=== PATIENT | male | born 1965 | race Caucasian/White ===

== ENCOUNTER 2016-08-03 08:10 | Inpatient (IN) | payer OTHER ==
[2016-08-03 13:18] LABS: Urine Bacteria Absent (Absent); Urine Bilirubin 1+ (Negative); Urine Glucose Negative (Negative); Urine Nitrite Negative (Negative)
--- NOTE | 2016-08-03 13:56 | ED ---
Course/Dx - Course Course Of Treatment: 51 yo male with ruq pain under right rib cage after beef dinner fri night on all day yesterday and much relieved this am. Normal exam for him - plan is. 1) ekg. 2) cxr. 3) u/s. 4) labs. if normal ok to go with pmd or surgery followup - Diagnoses Provider Diagnoses: Abdominal pain
--- NOTE | 2016-08-03 13:59 | RAD ---
Indication: Right upper quadrant pain. Real-time sonography of the right upper quadrant was performed. The liver is enlarged measuring up to 17.4 cm in length. It is diffusely increased in echogenicity consistent with hepatic steatosis. Small focal area of hypoechogenicity is noted adjacent to the gallbladder fossa. The common duct measures up to 10 mm. Gallbladder demonstrates no gallstones, pericholecystic fluid or wall thickening. The right kidney measures 10.7 x 6.7 x 5.9 cm with no hydronephrosis. The pancreas head, neck and proximal body as well as aorta and inferior vena cava are limited in evaluation due to overlying gas. IMPRESSION: Echogenic liver consistent with hepatic steatosis. No evidence of cholelithiasis or biliary duct dilatation.
--- NOTE | 2016-08-03 14:04 | RAD ---
INDICATION: Chest and abdominal pain COMPARISON: None TECHNIQUE: PA and lateral dual-energy views were obtained. FINDINGS: Bones/Soft Tissues: There are no acute bony findings. Cardiomediastinal: The cardiomediastinal silhouette is normal. Lungs: There are no infiltrates. Pleura: There are no pleural effusions. Other: None IMPRESSION: NORMAL CHEST.
[2016-08-03 14:40] LABS: Hematocrit 55 % (42-52); Hemoglobin 18.7 g/dl (14.0-18.0); Mean Corpuscular HGB Conc 34 g/dl (31-36); Mean Corpuscular Hemoglobin 29 pg (27-31); Mean Corpuscular Volume 86 fL (80-94); Red Blood Count 6.36 10^6/ul (4.0-5.4); Red Cell Distribution Width 13 % (10.5-15); White Blood Count 15.2 10^3/ul (3.5-10.8)
[2016-08-03 14:45] LABS: Comments Flag Yes
[2016-08-03 14:46] LABS: Add Diff/Slide Review? Slide Review Added
[2016-08-03 14:57] LABS: Troponin I 0.01 ng/mL (<0.04)
[2016-08-03 15:12] LABS: Albumin 4.4 g/dL (3.2-5.2); BUN/Creatinine Ratio 17.3 (8-20); C Reactive Protein 76.07 mg/L (< 5.00); Calcium 10.4 mg/dL (8.6-10.3); EGFR African American 104.5 (>60); EGFR Non-African American 81.3 (>60); Globulin 3.4 g/dL (2-4); Potassium 4.4 mmol/L (3.5-5.0); Total Protein 7.8 g/dL (6.4-8.9)
[2016-08-03] MEDS ORDERED: NS 0.9% 1000 ML* 1,000 ML IV ONE (16:03)
--- NOTE | 2016-08-03 16:49 | ED ---
Kylie Geronimo Janilya, scribed for Sandie Chavez MD on 08/03/16 at 1505 . Abdominal Pain/Male - HPI Summary HPI Summary: A 51 yo male came in to [facility] presenting w/ a gradual onset of constant of "intense" RUQ abd pain that started 3 days ago after having a steak for dinner. Pt states there is no pain to palpation, but rather it feels good to put pressure in the area. Pt denies chest pressure. Pain has subsided since then, and now it is described as "dull and achy". Pt has not eaten anything today. No SHx of tobacco and SHx of occasional EtOH use. PMHx HTN, no DM, kidney stones. No PMHx of surgeries in abd, blood clots, PE, DVT FMHx HTN - mother No PE risk factors. - History of Current Complaint Chief Complaint: EDAbdPain Stated Complaint: UPPER RT ABD PAIN Time Seen by Provider: 08/03/16 15:01 Hx Obtained From: Patient Onset/Duration: Gradual Onset, Lasting Days, Still Present Timing: Constant Severity Initially: Moderate Severity Currently: Moderate Pain Intensity: 4 Pain Scale Used: 0-10 Numeric Location: Discrete At: RUQ Radiates: No Character: Dull Aggravating Factor(s): Food Alleviating Factor(s): Nothing Associated Signs And Symptoms: Negative: Chest Pain - Risk Factors Testicular Torsion: Negative Cardiac Risk Factors: Hypertension, Family History - Allergies/Home Medications Allergies/Adverse Reactions: Allergies Allergy/AdvReac Type Severity Reaction Status Date / Time Losartan Allergy Unknown Verified 08/03/16 08:34 Reaction Details Home Medications: Home Medications Atenolol TAB* [Tenormin TAB* 50 MG] 100 mg PO DAILY 08/03/16 [History Confirmed 08/03/16] Ibuprofen TAB* [Advil TAB*] 400 mg PO Q6H PRN 08/03/16 [History Confirmed ] PMH/Surg Hx/FS Hx/Imm Hx Endocrine/Hematology History: Denies: Hx Diabetes Cardiovascular History: Reports: Hx Hypertension Infectious Disease History: No Infectious Disease History: Denies: Traveled Outside the [place] in Last 30 Days - Family History Known Family History: Positive: Hypertension - mother - Social History 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 Lives: With Family Alcohol Use: Occasionally Hx Tobacco Use: No Review of Systems Negative: Chest Pain Positive: Abdominal Pain - RUQ All Other Systems Reviewed And Are Negative: Yes Physical Exam Triage Information Reviewed: Yes Vital Signs On Initial Exam: Initial Vitals Temp Pulse Resp BP Pulse Ox 97.9 F 78 15 115/82 96 08/03/16 08:34 08/03/16 08:34 08/03/16 08:34 08/03/16 08:34 08/03/16 08:34 Vital Signs Reviewed: Yes Appearance: Positive: Well-Appearing, No Pain Distress Skin: Positive: Warm, Skin Color Reflects Adequate Perfusion, Dry Eyes: Positive: EOMI, ALVARO ENT: Positive: Pharynx normal, TMs normal Neck: Positive: Supple, Nontender Respiratory/Lung Sounds: Positive: Clear to Auscultation, Breath Sounds Present. Negative: Rales, Rhonchi - no rales Cardiovascular: Positive: RRR. Negative: Murmur, Rub - no gallops Abdomen Description: Positive: Nontender, Soft. Negative: Distended, Guarding - no rebound Bowel Sounds: Positive: Present Musculoskeletal: Positive: Strength/ROM Intact, Pain @ - right rib cage. Negative: Edema Left, Edema Right Neurological: Positive: Sensory/Motor Intact, Alert, Oriented to Person Place, Time, CN Intact II-III Psychiatric: Positive: Affect/Mood Appropriate Diagnostics - Vital Signs Vital Signs Temp Pulse Resp BP Pulse Ox 08/03/16 08:34 97.9 F 78 15 115/82 96 - Laboratory Lab Results: Lab Results 08/03/16 08/03/16 08/03/16 Range/Units 12:15 14:27 14:27 WBC 15.2 H (3.5-10.8) 10^3/ul RBC 6.36 H (4.0-5.4) 10^6/ul Hgb 18.7 H (14.0-18.0) g/dl Hct 55 H (42-52) % MCV 86 (80-94) fL MCH 29 (27-31) pg MCHC 34 (31-36) g/dl RDW 13 (10.5-15) % Plt Count Pending MPV Pending Neut % (Auto) 83.9 H (38-83) % Lymph % (Auto) 9.2 L (25-47) % [place] % (Auto) 6.2 (1-9) % Eos % (Auto) 0.3 (0-6) % Baso % (Auto) 0.4 (0-2) % Absolute Neuts (auto) 12.7 H (1.5-7.7) 10^3/ul Absolute Lymphs (auto) 1.4 (1.0-4.8) 10^3/ul Absolute Monos (auto) 0.9 H (0-0.8) 10^3/ul Absolute Eos (auto) 0 (0-0.6) 10^3/ul Absolute Basos (auto) 0.1 (0-0.2) 10^3/ul Absolute Nucleated RBC 0.01 10^3/ul Nucleated RBC % 0.1 Sodium Pending Potassium Pending Chloride Pending Carbon Dioxide Pending Anion Gap Pending BUN Pending Creatinine Pending Est GFR ( Amer) Pending Est GFR (Non-Af Amer) Pending BUN/Creatinine Ratio Pending Glucose Pending Calcium Pending Total Bilirubin Pending AST Pending ALT Pending Alkaline Phosphatase Pending Troponin I 0.01 (<0.04) ng/mL C-Reactive Protein Pending Total Protein Pending Albumin Pending Globulin Pending Albumin/Globulin Ratio Pending Lipase Pending Urine Color Jovanna Urine Appearance Turbid Urine pH 5.0 (5-9) Ur Specific [place] 1.026 (1.010-1.030) Urine Protein Negative (Negative) Urine Ketones Trace H (Negative) Urine Blood 1+ H (Negative) Urine Nitrate Negative (Negative) Urine Bilirubin 1+ (Negative) Urine Urobilinogen Negative (Negative) Ur Leukocyte Esterase Negative (Negative) Urine WBC (Auto) Absent (Absent) Urine RBC (Auto) Absent (Absent) Amorphous Crystals Present H (Absent) Urine Bacteria Absent (Absent) Urine Glucose Negative (Negative) Result Diagrams: 08/03/16 14:27 08/03/16 14:27 Lab Statement: Any lab studies that have been ordered have been reviewed, and results considered in the medical decision making process. - Radiology CXR Xray Interpretation: No Acute Changes - IMPRESSION: Normal chest Radiology Interpretation Completed By: Radiologist - Ultrasound No standard instances Ultrasound Interpretation: Positive (See Comments) - IMPRESSION: Echogenic liver consistent with hepatic steatosis. No evidence of cholelithiasis or biliary duct dilatation. Ultrasound Interpretation Completed By: Radiologist - EKG 1405 Cardiac Rate: NL - 82 bpm EKG Rhythm: Sinus Rhythm ST Segment: Non-Specific Abdominal Pain Fem Course/Dx - Course Course Of Treatment: 51 yo male with ruq pain under right rib cage after beef dinner fri night on all day yesterday and much relieved this am. Normal exam for him - plan is. 1) ekg. 2) cxr. Pt came back with an elevated wbc and elevated liver enzymes. Pt is to be brought in for an observation to see if his enzymes decrease- with the idea that he likely passed a stone. 3) u/s. 4) labs. if normal ok to go with pmd or surgery followup - Diagnoses Provider Diagnoses: Abdominal pain - Provider Notifications Discussed Care Of Patient With: Dr. Britton (GI) at 1525: recommends admission. Dr. Alvarado (hospitalist) at 1628: agrees to evaluate pt for admission. Discharge - Discharge Plan Condition: Stable Disposition: ADMITTED TO [facility] Referrals: Jeffry Gilmore MD [Primary Care Provider] - Additional Instructions: The documentation as recorded by the Kylie harris Janilya accurately reflects the service I personally performed and the decisions made by me, Sandie Chavez MD.
--- NOTE | 2016-08-03 17:29 | ADMNOTE ---
Subjective Date of Service: 08/03/16 Interval History: ADMISSION HISTORY AND PHYSICAL EXAM: Allergies Allergy/AdvReac Type Severity Reaction Status Date / Time Losartan Allergy Unknown Verified 08/03/16 08:34 Reaction Details Home Medications Medication Instructions Recorded Confirmed Type Atenolol TAB* [Tenormin TAB* 50 MG] 100 mg PO DAILY 08/03/16 08/03/16 History Ibuprofen TAB* [Advil TAB*] 400 mg PO Q6H PRN 08/03/16 08/03/16 History HPI: The patient was in his usual state of health on 07/31/16 until about midnight. He had eaten a hamburger at 9:30 PM. He had RUQ pain lasting until 1 AM 08/01 when it suddenly stopped. About 6 PM on 08/02 he again developed the sudden onset of RUQ pain. He had eaten dinner at 5:30 PM. He noticed scleral icterus and dark urine. The pain persisted all night and through today and has just subside in mid-afternoon. The pain came back again after I finished examining him. Family History: Findings - Father of uncertain cause. Mother and 1 brother A&W. Social History: Findings - No tobacoo or alcohol use. Lives with his who is his SDM. Marko stephen at . Past Medical History: Findings - Surgery as for leg deformity-no residual problems. HTN. Review of Systems - Measurements Intake and Output: Intake and Output Last 24 Hours 08/01/16 08/02/16 08/03/16 08/04/16 06:59 06:59 06:59 06:59 Weight 203 lb 8 oz Other: Date of Last Bowel T-1 Movement - Review of Systems Constitutional Symptoms: Negative: Weight Gain, Weight Loss, Weakness, Fatigue, Fever, Night Sweats, Unexplained Falls, Other Dermatology: Positive: Normal HEENT: Positive: Normal Eyes: Positive: Normal Thyroid: Positive: Normal Pulmonary: Positive: Normal Cardiology: Positive: Normal Gastroenterology: Positive: Abdominal Pain Genital - Urinary: Positive: Normal Genitourinary - Male: Negative: Prostatism, Erectile Dysfunction, Family Hx of Prostate Cancer, Other Musculoskeletal: Negative: Joint Pain, Joint Stiffness, Arthritis, Osteoporosis, Low Back Pain , Sciatica, Joint Deformities, Kyphoscoliosis, Other Endocrinology: Positive: Normal Hematologic/Lymphatic: Negative: Anemia, Easy Brusing, Hx Leukemia, Hx Lymphoma, Use of Anticoagulant, Use of Antiplatelet Drugs, Other Neurology: Positive: Normal Psychiatry: Positive: Normal Allergic/Immunologic: Negative: Hx Anaphylaxis, Hx Angioedema, Hx Environmental, Hx Seasonal, Athsma, Hx HIV, Immunocompromise, Swollen Glands LymphNodes, Other Objective Active Medications: Enoxaparin Sodium (Lovenox(*)) 40 mg SUBCUT Q24H [facility] Potassium Chloride/Dextrose (D5w 1/2 Ns Kcl 20 Meq 1000 Ml*) 1,000 mls @ 125 mls/hr IV PER RATE GER Morphine Sulfate (Morphine Inj (Syringe)*) 1 mg IV Q2H PRN PRN Reason: PAIN - MODERATE Stop: 08/04/16 01:14 Morphine Sulfate (Morphine Inj (Syringe)*) 2 mg IV Q2H PRN PRN Reason: PAIN - SEVERE Vital Signs 08/03/16 08/03/16 08:34 15:16 Temperature 97.9 F 98.9 F Pulse Rate 78 84 Respiratory 15 18 Rate Blood Pressure 115/82 122/76 (mmHg) O2 Sat by Pulse 96 98 Oximetry Oxygen Devices in Use Now: None Appearance: Alert, supine on ED stretcher. In good spirits. Looks comfortable. Eyes: - - mild scleral icterus Ears/Nose/Mouth/Throat: Clear Oropharnyx, Mucous Membranes Moist Neck: NL Appearance and Movements; NL JVP, No Thyroid Enlargement, Masses Respiratory: Symmetrical Chest Expansion and Respiratory Effort, Clear to Auscultation, Clear to Percussion Cardiovascular: NL Sounds; No Murmurs; No JVD, RRR, No Edema, - Abdominal: NL Sounds; No Tenderness; No Distention, No Hepatosplenomegaly, - - No Bliss's point tenderness Extremities: No Edema, No Clubbing, Cyanosis, - Skin: No Rash or Ulcers, No Nodules or Sclerosis, - Neurological: Alert and Oriented x 3, NL Sensation Result Diagrams: 08/03/16 14:27 08/03/16 14:27 Additional Lab and Data: Lab Results 08/03/16 08/03/16 08/03/16 Range/Units 12:15 14:27 14:27 WBC 15.2 H (3.5-10.8) 10^3/ul RBC 6.36 H (4.0-5.4) 10^6/ul Hgb 18.7 H (14.0-18.0) g/dl Hct 55 H (42-52) % MCV 86 (80-94) fL MCH 29 (27-31) pg MCHC 34 (31-36) g/dl RDW 13 (10.5-15) % Plt Count Pending MPV Pending Neut % (Auto) 83.9 H (38-83) % Lymph % (Auto) 9.2 L (25-47) % [place] % (Auto) 6.2 (1-9) % Eos % (Auto) 0.3 (0-6) % Baso % (Auto) 0.4 (0-2) % Absolute Neuts (auto) 12.7 H (1.5-7.7) 10^3/ul Absolute Lymphs (auto) 1.4 (1.0-4.8) 10^3/ul Absolute Monos (auto) 0.9 H (0-0.8) 10^3/ul Absolute Eos (auto) 0 (0-0.6) 10^3/ul Absolute Basos (auto) 0.1 (0-0.2) 10^3/ul Absolute Nucleated RBC 0.01 10^3/ul Nucleated RBC % 0.1 Sodium Pending Potassium Pending Chloride Pending Carbon Dioxide Pending Anion Gap Pending BUN Pending Creatinine Pending Est GFR ( Amer) Pending Est GFR (Non-Af Amer) Pending BUN/Creatinine Ratio Pending Glucose Pending Calcium Pending Total Bilirubin Pending AST Pending ALT Pending Alkaline Phosphatase Pending Troponin I 0.01 (<0.04) ng/mL C-Reactive Protein Pending Total Protein Pending Albumin Pending Globulin Pending Albumin/Globulin Ratio Pending Lipase Pending Urine Color Jovanna Urine Appearance Turbid Urine pH 5.0 (5-9) Ur Specific [place] 1.026 (1.010-1.030) Urine Protein Negative (Negative) Urine Ketones Trace H (Negative) Urine Blood 1+ H (Negative) Urine Nitrate Negative (Negative) Urine Bilirubin 1+ (Negative) Urine Urobilinogen Negative (Negative) Ur Leukocyte Esterase Negative (Negative) Urine WBC (Auto) Absent (Absent) Urine RBC (Auto) Absent (Absent) Amorphous Crystals Present H (Absent) Urine Bacteria Absent (Absent) Urine Glucose Negative (Negative) Assess/Plan/Problems-Billing Assessment: - Patient Problems (1) Jaundice Current Visit: Yes Status: Acute Code(s): R17 - UNSPECIFIED JAUNDICE SNOMED Code(s): 24407792 Comment: Sudden onset and cessation and relation to eating very suggestive of passed gallstone as cause. Return of pain suggests retained stone. CT with IV contrast 08/03. Dr. Schmid will see 08/04. CMP, CBC 08/04. Start cipro to prevent cholangitis in face of probable billiary oobstruction with high WBC and high CRP. Clear luids, NPO after MN for possible ERCP. (2) HTN (hypertension) Current Visit: Yes Status: Acute Code(s): I10 - ESSENTIAL (PRIMARY) HYPERTENSION SNOMED Code(s): 95817259 Comment: Hold atenolol.
[2016-08-03] MEDS: Morphine INJ* 2 MG/ML 1 ML CARPUJECT IV PRN ×3 (17:34→23:33)
[2016-08-03] MEDS ORDERED: Iohexol 300* (CONTRAST) 10 ML SDV IV ONE (17:35)
[2016-08-03] MEDS: Ciprofloxacin 400MG IVPREMIX(* 400 MG/200 ML BAG IVPB SCH (18:02)
--- NOTE | 2016-08-03 18:03 | RAD ---
INDICATION: Right upper quadrant pain COMPARISON: Gallbladder sonogram August 03, 2016 TECHNIQUE: Axial source images were obtained from the hemidiaphragms to the symphysis pubis following administration of oral and intravenous contrast. 123 mL Omnipaque 300 was utilized. Coronal and sagittal reconstructed images were acquired. Lung bases: There is minimal bibasilar platelike atelectasis or scar. Liver: The liver is normal in size. There is hepatic steatosis There are no masses. There is mild intra and extra hepatic ductal dilatation. The common duct measures 2 cm. There is choledocholithiasis. There are probably calculi in the cystic duct. Gallbladder: The gallbladder is mildly distended. There is no thickening gallbladder wall. There is a small amount of pericholecystic fluid. Spleen: The spleen is mildly enlarged but unchanged in size. There are no masses.. Pancreas: There is no focal pancreatic mass or ductal dilatation. Adrenal glands: There is no evidence of adrenal mass. Kidneys: The kidneys are normal in size and position. There are prompt nephrograms and there is prompt excretion bilaterally. There are no renal parenchymal masses. There is no evidence of nephrolithiasis. Adenopathy: There is no evidence of adenopathy by size criteria. Fluid collections: There are no free or localized fluid collections. Vessels:There are no significant atherosclerotic changes involving the aorta. There is no focal aneurysm. The iliac vessels are normal in caliber. The IVC appears normal. GI tract: There are no acute CT bowel findings. There is no obstruction. The stomach and small bowel appear normal. The lower GI tract is remarkable for scattered moderate diverticula of the sigmoid and descending colon without findings of acute diverticulitis. The appendix is visualized and appears normal. Pelvic organs: The prostate and seminal vesicles appear normal Bladder: There are no bladder masses. Abdominal and pelvic soft tissues: The extraperitoneal abdominal and pelvic soft tissues appear normal.. Osseous structures: There are no acute osseous findings. Other: None IMPRESSION: 1. Hepatic steatosis. 2. Intrahepatic and extrahepatic ductal dilatation with choledocholithiasis 3. Distended gallbladder with small amount of pericholecystic fluid. Suspect cystic duct calculi. 4. Moderate diverticula. No CT evidence of acute diverticulitis.
[2016-08-03] MEDS: Enoxaparin(*) 40 MG/0.4 ML SYR SUBCUT SCH (21:22)
[2016-08-03] MEDS: D5W 1/2 NS KCl 20 Meq 1000 ML* 1,000 ML IV SCH (21:33)
[2016-08-04] MEDS: Ciprofloxacin 400MG IVPREMIX(* 400 MG/200 ML BAG IVPB SCH ×2 (05:33→18:45)
[2016-08-04 06:49] LABS: Hematocrit 52 % (42-52); Hemoglobin 17.1 g/dl (14.0-18.0); Mean Corpuscular HGB Conc 33 g/dl (31-36); Mean Corpuscular Hemoglobin 30 pg (27-31); Mean Corpuscular Volume 91 fL (80-94); Mean Platelet Volume 9 um3 (7.4-10.4); Red Blood Count 5.72 10^6/ul (4.0-5.4); Red Cell Distribution Width 13 % (10.5-15); White Blood Count 10.9 10^3/ul (3.5-10.8)
[2016-08-04 06:52] LABS: Comments Flag Yes
[2016-08-04 06:53] LABS: Add Diff/Slide Review? Slide Review Added
[2016-08-04 07:05] LABS: Albumin 3.7 g/dL (3.2-5.2); BUN/Creatinine Ratio 14.1 (8-20); Calcium 8.8 mg/dL (8.6-10.3); EGFR African American 136.1 (>60); EGFR Non-African American 105.8 (>60); Potassium 3.7 mmol/L (3.5-5.0); Total Bilirubin 4.9 mg/dL (0.2-1.0); Total Protein 6.7 g/dL (6.4-8.9)
[2016-08-04] MEDS ORDERED: Influenza VAC *QUAD* 2016-17* 0.5 ML SYRINGE IM ONE (10:00)
[2016-08-04] MEDS: Morphine INJ* 2 MG/ML 1 ML CARPUJECT IV PRN (10:10)
--- NOTE | 2016-08-04 12:52 | RAD ---
INDICATION: Obstructive jaundice. COMPARISON: Comparison is made with prior right upper quadrant ultrasounds and a CT of the abdomen and pelvis from August 03, 2016. TECHNIQUE: Axial and coronal heavily T2-weighted images of the abdomen were obtained. Images were reconstructed in the maximum intensity projection format. FINDINGS: The liver is normal in size. There is intra and extrahepatic ductal distention. The common bile duct measures 1.5 cm in diameter. There is a calculus in the distal portion of the common bile duct measuring 0.9 x 0.6 cm. In addition the gallbladder is distended. The wall of the gallbladder is thickened measuring 3 mm in thickness. There is a small amount of pericholecystic fluid. In addition there is a calculus in the neck of the gallbladder measuring 1.3 cm in diameter. The pancreatic duct appears nondistended. The spleen is mildly enlarged spanning 14.5 cm without focal abnormality. The adrenal glands and kidneys are normal in size. No mass is seen. There is no evidence for hydronephrosis. There is a small amount of free intraperitoneal fluid. IMPRESSION: 1. INTRA AND EXTRAHEPATIC DUCTAL DISTENTION AND CALCULUS IN THE DISTAL COMMON BILE DUCT. 2. CALCULUS IN THE NECK OF THE GALLBLADDER POSSIBLY IMPACTED. THERE IS GALLBLADDER WALL THICKENING AND MILD PERICOLIC CYSTIC FLUID SUGGESTING THE POSSIBILITY OF ACUTE CHOLECYSTITIS. 3. MILD SPLENOMEGALY.
[2016-08-04] MEDS ORDERED: Midazolam* 1 MG/ML 5 ML VIAL (5 MG) ONE (14:33)
[2016-08-04] MEDS ORDERED: fentaNYL* 50 MCG/ML 5 ML VIAL (250 MCG VIAL) ONE (14:33)
[2016-08-04] MEDS ORDERED: KETAMINE HCL* 50 MG/ML 10 ML VIAL ONE (14:33)
[2016-08-04] MEDS ORDERED: Atracurium* 10 MG/ML 10 ML VIAL ONE (14:33)
[2016-08-04] MEDS ORDERED: Famotidine IV* 10 MG/ML 2 ML (20 mg) ONE (14:34)
[2016-08-04] MEDS ORDERED: Propofol* 10 MG/ML 20 ML BTL IV PUSH ONE (14:34)
[2016-08-04] MEDS ORDERED: Buffered Lidocaine 1% SYR 3ML* 3 ML/SYR SYRINGE INTRADERM ONE (14:38)
[2016-08-04] MEDS ORDERED: Famotidine IV* 10 MG/ML 2 ML (20 mg) IV ONE (14:38)
[2016-08-04] MEDS ORDERED: PROCHLORPERAZINE INJ 5 MG/ML 2 ML VIAL IV PRN (14:40)
[2016-08-04] MEDS ORDERED: Morphine INJ* 2 MG/ML 1 ML CARPUJECT IV PRN (14:40)
[2016-08-04] MEDS ORDERED: fentaNYL* 50 MCG/ML 2 ML VIAL (100 MCG VIAL) IV PRN (14:40)
[2016-08-04] MEDS ORDERED: NS 0.9% 1000 ML* 1,000 ML IV SCH (14:45)
--- NOTE | 2016-08-04 15:13 | PN ---
Subjective Date of Service: 08/04/16 Interval History: Pain much improved. No nausea. No new c/o. 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 Family History: Findings - Father of uncertain cause. Mother and 1 brother A&W. Social History: Findings - No tobacoo or alcohol use. Lives with his who is his SDM. Marko stephen at . Past Medical History: Findings - Surgery as for leg deformity-no residual problems. HTN. Objective Active Medications: Enoxaparin Sodium (Lovenox(*)) 40 mg SUBCUT Q24H [facility] Last Admin: 08/03/16 21:22 Dose: Not Given Fentanyl Citrate (Fentanyl*) 25 mcg IV Q3M PRN PRN Reason: PAIN - MODERATE Stop: 08/04/16 18:00 Ciprofloxacin/Dextrose (Cipro 400 Mg Ivpremix(*)) 400 mg in 200 mls @ 200 mls/ hr IVPB Q12H [facility] Last Admin: 08/04/16 05:33 Dose: 200 mls/hr Sodium Chloride (Ns 0.9% 1000 Ml*) 1,000 mls @ 125 mls/hr IV PER RATE [facility] Morphine Sulfate (Morphine Inj (Syringe)*) 1 mg IV Q2H PRN PRN Reason: PAIN - MODERATE Last Admin: 08/03/16 21:28 Dose: 1 mg Morphine Sulfate (Morphine Inj (Syringe)*) 2 mg IV Q2H PRN PRN Reason: PAIN - SEVERE Last Admin: 08/04/16 10:10 Dose: 2 mg Morphine Sulfate (Morphine Inj (Syringe)*) 3 mg IV Q5M PRN PRN Reason: PAIN - SEVERE Stop: 08/04/16 18:00 Prochlorperazine Edisylate (Compazine Inj*) 5 mg IV ONCE PRN PRN Reason: NAUSEA/VOMITING Stop: 08/04/16 18:00 Vital Signs 08/03/16 08/03/16 08/03/16 17:24 17:34 18:20 Temperature 98.2 F 99.4 F Pulse Rate 84 86 Respiratory 15 16 18 Rate Blood Pressure 128/65 150/90 (mmHg) O2 Sat by Pulse 100 Oximetry 08/03/16 08/03/16 08/03/16 19:45 20:00 21:28 Temperature 99.4 F Pulse Rate 81 Respiratory 16 18 18 Rate Blood Pressure 139/75 (mmHg) O2 Sat by Pulse 94 Oximetry 08/03/16 08/03/16 08/03/16 22:28 23:28 23:33 Temperature Pulse Rate Respiratory 18 16 16 Rate Blood Pressure (mmHg) O2 Sat by Pulse Oximetry 08/04/16 08/04/16 08/04/16 00:04 00:28 00:33 Temperature 99.2 F Pulse Rate 64 Respiratory 16 16 16 Rate Blood Pressure 130/62 (mmHg) O2 Sat by Pulse 98 Oximetry 08/04/16 08/04/16 08/04/16 04:16 07:23 08:00 Temperature 97.3 F 98.2 F Pulse Rate 64 66 Respiratory 16 16 16 Rate Blood Pressure 125/62 132/64 (mmHg) O2 Sat by Pulse 97 96 Oximetry 08/04/16 08/04/16 08/04/16 10:10 11:10 11:31 Temperature 97.8 F Pulse Rate 63 Respiratory 16 16 16 Rate Blood Pressure 131/68 (mmHg) O2 Sat by Pulse 97 Oximetry Oxygen Devices in Use Now: None Appearance: Alert, supine in bed. In good spirits. Looks comfortable. Eyes: - - mild scleral icterus Ears/Nose/Mouth/Throat: Clear Oropharnyx, Mucous Membranes Moist Cardiovascular: NL Sounds; No Murmurs; No JVD, RRR, No Edema, - Extremities: No Edema, No Clubbing, Cyanosis, - Skin: No Rash or Ulcers, No Nodules or Sclerosis, - Neurological: Alert and Oriented x 3, NL Sensation Result Diagrams: 08/05/16 05:32 08/05/16 05:32 Additional Lab and Data: Lab Results 08/03/16 08/03/16 08/03/16 Range/Units 12:15 14:27 14:27 WBC 15.2 H (3.5-10.8) 10^3/ul RBC 6.36 H (4.0-5.4) 10^6/ul Hgb 18.7 H (14.0-18.0) g/dl Hct 55 H (42-52) % MCV 86 (80-94) fL MCH 29 (27-31) pg MCHC 34 (31-36) g/dl RDW 13 (10.5-15) % Plt Count Pending MPV Pending Neut % (Auto) 83.9 H (38-83) % Lymph % (Auto) 9.2 L (25-47) % [place] % (Auto) 6.2 (1-9) % Eos % (Auto) 0.3 (0-6) % Baso % (Auto) 0.4 (0-2) % Absolute Neuts (auto) 12.7 H (1.5-7.7) 10^3/ul Absolute Lymphs (auto) 1.4 (1.0-4.8) 10^3/ul Absolute Monos (auto) 0.9 H (0-0.8) 10^3/ul Absolute Eos (auto) 0 (0-0.6) 10^3/ul Absolute Basos (auto) 0.1 (0-0.2) 10^3/ul Absolute Nucleated RBC 0.01 10^3/ul Nucleated RBC % 0.1 Sodium Pending Potassium Pending Chloride Pending Carbon Dioxide Pending Anion Gap Pending BUN Pending Creatinine Pending Est GFR ( Amer) Pending Est GFR (Non-Af Amer) Pending BUN/Creatinine Ratio Pending Glucose Pending Calcium Pending Total Bilirubin Pending AST Pending ALT Pending Alkaline Phosphatase Pending Troponin I 0.01 (<0.04) ng/mL C-Reactive Protein Pending Total Protein Pending Albumin Pending Globulin Pending Albumin/Globulin Ratio Pending Lipase Pending Urine Color Jovanna Urine Appearance Turbid Urine pH 5.0 (5-9) Ur Specific [place] 1.026 (1.010-1.030) Urine Protein Negative (Negative) Urine Ketones Trace H (Negative) Urine Blood 1+ H (Negative) Urine Nitrate Negative (Negative) Urine Bilirubin 1+ (Negative) Urine Urobilinogen Negative (Negative) Ur Leukocyte Esterase Negative (Negative) Urine WBC (Auto) Absent (Absent) Urine RBC (Auto) Absent (Absent) Amorphous Crystals Present H (Absent) Urine Bacteria Absent (Absent) Urine Glucose Negative (Negative) Assess/Plan/Problems-Billing Assessment: - Patient Problems (1) Jaundice Current Visit: Yes Status: Acute Code(s): R17 - UNSPECIFIED JAUNDICE SNOMED Code(s): 93178182 Comment: Sudden onset and cessation and relation to eating very suggestive of passed gallstone as cause. Return of pain suggests retained stone. CT showed cholelithiasis and biliary ductal dilatation both intra and extra hepatic. Dr. Schmid will see 08/04. CMP, CBC 08/05. Continue cipro to prevent cholangitis in face of probable billiary oobstruction with high WBC and high CRP. Note WBC decreased on 08/04, LFT's all improved. Clear fluids, NPO 08/04 for possible ERCP. (2) HTN (hypertension) Current Visit: Yes Status: Acute Code(s): I10 - ESSENTIAL (PRIMARY) HYPERTENSION SNOMED Code(s): 74530128 Comment: Hold atenolol.
[2016-08-04] MEDS ORDERED: Indomethacin SUPP(NF) 50 MG SUP PR ONE (15:31)
[2016-08-04] MEDS ORDERED: Dexamethasone IV* 4 MG/ML 1 ML (4 MG) ONE (16:19)
[2016-08-04] MEDS ORDERED: Ondansetron INJ* 2 MG/ML VIAL ONE (16:19)
[2016-08-04] MEDS ORDERED: Neostigmine Methylsulfate* 2 MG/2 ML SYRINGE ONE (16:19)
[2016-08-04] MEDS ORDERED: Glycopyrrolate IV* 0.2 MG/ML 1 ML VIAL ONE (16:19)
[2016-08-04] MEDS ORDERED: Metoprolol Tartrate IV* 1 MG/ML 5 ML VIAL ONE (16:24)
[2016-08-04] MEDS ORDERED: Phenylephrine IV* 40 MCG/ML 10 ML SYRINGE ONE (16:24)
--- NOTE | 2016-08-04 17:05 | RAD ---
INDICATION: Jaundice. Choledocholithiasis COMPARISON: CT August 03, 2016 FINDINGS: 28 seconds of fluoroscopy were provided for the gastroenterology department. Fluoroscopic spot imaging of the abdomen were obtained for operative control and show cannulation of the common duct with balloon extraction in this patient with choledocholithiasis. Final images show no persistent filling defect there is an drainage of contrast from the common duct. CPT II Codes: 6045F (fluoro time doc)
[2016-08-04] MEDS ORDERED: Flumazenil* 0.1 MG/ML 5 ML MDV ONE (17:12)
--- NOTE | 2016-08-04 19:13 | CONS ---
GASTROENTEROLOGY CONSULT: DATE: 08/04/16 CONSULTING PHYSICIAN: Jair Peña. 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 The pain lasted 3 hours and then abruptly ended. The next day, he was okay, but his urine was dark. He denied any pain. Pain recurred on August 02. 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 Pain has come and gone several times since then. He does not have any chronic gastrointestinal problems and has not had any investigations for that. PAST MEDICAL HISTORY: 1. Hypertension - without sequelae. 2. History of erythrocytosis - worked up by Dr. Diez 2 or 3 years ago with nothing determined. SOCIAL HISTORY: He is and is at [employer]. He is a nonsmoker. He does not abuse alcohol. He has not had any surgery. He has no history of cardiac, pulmonary, prior hepatic, or renal disease. He has not had any syncope. PHYSICAL EXAM: He is a mildly icteric, middle-aged man in no distress. He is afebrile. HEENT exam is otherwise unremarkable. There is no adenopathy. His lungs are clear and heart sounds are normal. The abdomen is symmetric without scars. It is firm without focal tenderness or guarding. Rectal: Deferred. Extremities show no edema. Neurologic: Nonfocal with normal cranial nerves, moving all 4 extremities. DIAGNOSTIC STUDIES/LAB DATA: Admitting CBC: Hemoglobin 18.7, hematocrit 55, white count 15.2. LFTs show bilirubin 7.0, ALT 72, alkaline phosphatase 312, lipase 16. Radiology - ultrasound was unremarkable yesterday and then CT scan showed gallstones. MRCP showed a common duct stone. IMPRESSION: This 51-year-old man has gallstones in 2 locations. That fits the clinical history of pain and his LFTs that are fluctuating. ERCP is indicated. With his present, we went over a diagram and discussed the relevant physiology and possible complications. All questions were answered. [id number]/[facility] #: [id number] MTDD
--- NOTE | 2016-08-04 23:48 | PRO ---
DATE: 08/04/16 - ROOM #[id number] REFERRING PHYSICIANS: Guanakito Guerin ; Laron Peña* PROCEDURE: ERCP with sphincterotomy and balloon extraction, 9 to 10 mm common bile duct stone. 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 CT scan and then MRCP confirmed a common duct stone as an explanation for bilirubin of 7 at presentation. Informed consent was obtained in discussion. ENDOSCOPIST: Dr. Schmid. ANESTHESIOLOGIST: Dr. Prieto. FINDINGS: He is a healthy appearing, mildly jaundiced, middle aged man with an ET tube in place. He was rolled supine and area was padded. He was on a warming blanket. Preprocedure an indomethacin suppository was given Esophagus - 10% to 20 % views were normal. Stomach - normal limited views with the antrum in particular appearing normal and the pylorus unremarkable. Duodenum - normal contours and the scope obtained a short position in front of the papilla. The papilla was long and scar shaped, flanked by a fairly deep 3 cm diverticulum to the left visual field and with shallow depression, not truly diverticulum to the right. The papilla was rather bulbous. The sphincterotome inclined at about 45 degrees, probed the tip in a sweeping upwards motion. It entered the ductal system and the guidewire went straight up into the common duct and then liver. The guidewire was locked in a deep position. Injection showed a common bile duct stone that was quite plainly seen. It was a single stone. Sphincterotomy was done at an 11 o'clock orientation for about 14 mm. An exchange was made for a balloon and this was then plated at 15 mm up in the common hepatic duct and then swept down. The duct was rather large to most of its length. It then came through pushing ahead the 9 to 10 mm common duct stone , which was black. There was a small amount of particular debris that came through during other sweeps. A final balloon occlusion cholangiogram showed no other filling defects. All the dye drained quickly. The procedure was terminated. IMPRESSION: 1. Duodenal diverticula - normal views (limited) of antrum and duodenum 2. Gallstones. 3. Status post endoscopic sphincterotomy after first cannulation. 4. Common bile duct stone - delivered via balloon extraction. The patient will be observed and kept on clear liquids. [id number]/[facility] #: [id number] HENRI
[2016-08-04] MEDS: Enoxaparin(*) 40 MG/0.4 ML SYR SUBCUT SCH (23:55)
[2016-08-05] MEDS: D5W 1/2 NS KCl 20 Meq 1000 ML* 1,000 ML IV SCH (00:32)
[2016-08-05] MEDS: Ciprofloxacin 400MG IVPREMIX(* 400 MG/200 ML BAG IVPB SCH ×2 (05:16→18:10)
[2016-08-05 05:51] LABS: Hematocrit 43 % (42-52); Hemoglobin 15.1 g/dl (14.0-18.0); Mean Corpuscular HGB Conc 35 g/dl (31-36); Mean Corpuscular Hemoglobin 30 pg (27-31); Mean Corpuscular Volume 85 fL (80-94); Mean Platelet Volume 9 um3 (7.4-10.4); Red Cell Distribution Width 13 % (10.5-15); White Blood Count 12.8 10^3/ul (3.5-10.8)
[2016-08-05 06:06] LABS: ALT 121 U/L (7-52); AST 20 U/L (13-39); Albumin 3.3 g/dL (3.2-5.2); Alkaline Phosphatase 122 U/L (34-104); Anion Gap 4 mmol/L (2-11); BUN/Creatinine Ratio 16.7 (8-20); Blood Urea Nitrogen 14 mg/dL (6-24); CO2 Carbon Dioxide 26 mmol/L (22-32); Calcium 9.2 mg/dL (8.6-10.3); Chloride 103 mmol/L (101-111); EGFR African American 124.9 (>60); EGFR Non-African American 97.1 (>60); Globulin 3.2 g/dL (2-4); Glucose 156 mg/dL (70-100); Lipase < 10 U/L (11.0-82.0); Potassium 4.4 mmol/L (3.5-5.0); Sodium 133 mmol/L (133-145); Total Protein 6.5 g/dL (6.4-8.9)
[2016-08-05] MEDS: NS 0.9% 1000 ML* 1,000 ML IV SCH (10:45)
[2016-08-05] MEDS: metroNIDAZOLE IV 500 MG/100ML* 500 MG/100 ML BAG IVPB SCH ×2 (10:49→22:56)
--- NOTE | 2016-08-05 18:06 | PN ---
Subjective Date of Service: 08/05/16 Interval History: HOSPITALIST PROGRESS NOTE Patient seen and examined at bedside. He feels better today, abdominal pain is much improved and he wants to advance his diet. Family History: Unchanged from Admission Social History: Unchanged from Admission Past Medical History: Unchanged from Admission Objective Active Medications: Atenolol (Tenormin Tab*) 100 mg PO DAILY [facility] Ciprofloxacin/Dextrose (Cipro 400 Mg Ivpremix(*)) 400 mg in 200 mls @ 200 mls/ hr IVPB Q12H [facility] Last Admin: 08/05/16 05:16 Dose: 200 mls/hr Sodium Chloride (Ns 0.9% 1000 Ml*) 1,000 mls @ 100 mls/hr IV PER RATE [facility] Last Admin: 08/05/16 10:45 Dose: 100 mls/hr Metronidazole/Sodium Chloride (Flagyl 500 Mg Ivpb*) 500 mg in 100 mls @ 100 mls /hr IVPB Q8H [facility] Last Admin: 08/05/16 10:49 Dose: 100 mls/hr Morphine Sulfate (Morphine Inj (Syringe)*) 2 mg IV Q2H PRN PRN Reason: PAIN - SEVERE Last Admin: 08/04/16 10:10 Dose: 2 mg Vital Signs 08/05/16 08/05/16 16:00 16:07 Temperature 97.8 F Pulse Rate 77 Respiratory 20 Rate Blood Pressure 126/64 (mmHg) O2 Sat by Pulse 95 97 Oximetry Oxygen Devices in Use Now: None Appearance: Pleasant gentleman lying in bed in NAD. Eyes: - - Mild scleral icterus Ears/Nose/Mouth/Throat: Mucous Membranes Moist Neck: Trachea Midline Respiratory: Symmetrical Chest Expansion and Respiratory Effort, Clear to Auscultation Cardiovascular: NL Sounds; No Murmurs; No JVD, RRR Abdominal: NL Sounds; No Tenderness; No Distention Extremities: No Edema Neurological: Alert and Oriented x 3, NL Muscle Strength and Tone Lines/Tubes/Other Access: Clean, Dry and Intact Peripheral IV Nutrition: Taking PO's Result Diagrams: 08/05/16 05:32 08/05/16 05:32 Assess/Plan/Problems-Billing Assessment: Mr. Bustos is a 51yo M with PMH of HTN, who presented to ED with c/o abdominal pain, found to have choledocholithiasis and possible cholecystitis. - Patient Problems (1) Choledocholithiasis with acute cholecystitis Comment: - US, CT, MRCP reviewed. - s/p ERCP yesterday with extraction of CBD stone. - Continue Cipro/Metronidazole for possible cholecystitis. - Surgery consult requested for possible cholecystectomy. - Patient's BP is controlled, CxR is normal and EKG showed no ischemic signs. RCRI is 1, predicting 1% risk of cardiac complications. Patient is optimized for proposed procedure. (2) HTN (hypertension) Comment: - Controlled off Atenolol, no signs of beta-patti withdrawal at this time. (3) DVT prophylaxis Comment: - Lovenox. Status and Disposition: Inpatient for management of choledocholithiasis and possible acute cholecystitis.
--- NOTE | 2016-08-05 19:32 | CONS ---
SURGICAL CONSULTATION REPORT: DATE OF CONSULT: 08/05/16 HISTORY OF PRESENT ILLNESS: I was asked by the gastroenterology department to evaluate Mike Bustos, a 51-year-old gentleman, who presented to [facility] Emergency Room on 08/03/16 with right upper quadrant pain, workup including a CAT scan of the abdomen and pelvis as well as labs was consistent with choledocholithiasis and cholangitis. The patient was admitted to the hospital, underwent an MRCP, which further delineated an intrahepatic and extrahepatic ductal dilatation with calculus at both the neck of the gallbladder and pericholecystic fluid. There is also calculus noted at the distal common bile duct. The patient underwent an ERCP yesterday successfully with Dr. Schmid. Please see the procedure report for additional details, after which, he showed significant improvement and for the last 24 hours, is not requiring any pain medication. The patient was otherwise in good health until Wednesday last week when he had a hamburger, he suffered with some right upper quadrant pain. This relieved after about 3 hours. This returned approximately Wednesday night and the patient continued to worsen and sought care. He denied any fevers during this time, possibly had chills. He did start to notice jaundice symptoms both at his sclerae and on his hands. He had dark colored urine, but not any light colored stools. PAST MEDICAL HISTORY: Hypertension and kidney stones. No abdominal surgeries. MEDICATIONS: Include atenolol. ALLERGIES: He is allergic to LOSARTAN. FAMILY HISTORY: Noncontributory. No family history of pancreatic or biliary malignancies. SOCIAL HISTORY: He does not smoke, drink, or do IV drugs. 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 REVIEW OF SYSTEMS: No shortness of breath. No chest pain. No recent weight loss or weight gain. Abdominal complaints as described above. Nausea, vomiting none. No change in bowel habits. Urine changes as described above. Good exercise tolerance. No bleeding or clotting disorders. No cardiovascular disease. No cerebrovascular disease. PHYSICAL EXAM: He is afebrile. Vital signs are stable. He is alert and oriented x3, in no apparent distress. Head, ears, eyes, nose, and throat: Normocephalic, atraumatic. Sclerae anicteric. Mucous membranes are moist. Abdomen is soft, nondistended, nontender. No masses noted. Small umbilical defect is appreciated, subcentimeter. No groin hernias. Rectal Exam: Not performed. Extremities: Within normal limits. DIAGNOSTIC STUDIES/LAB DATA: Labs reviewed showed white count down to 12.8 from high 15 with left shift. Chemistry panel shows a bilirubin of 7 upon arrival and now is 3.1; this will be repeated tomorrow. The patient's lipase is within normal limits and has been. His MRCP and CT scan reports are reviewed. IMPRESSION AND PLAN: Cholangitis, resolving with possibility of cholecystitis, although the patient is asymptomatic at this time. Recommendation is laparoscopic cholecystectomy. I outlined the details of the procedure going over the risks, benefits, and alternatives. The patient wishes to proceed in this fashion. We spoke about the complications briefly. The patient understands that I would be out of town and Dr. Rodriguez will be doing the procedure for this patient. This case was discussed with Dr. Rodriguez. The patient will be n.p.o. at midnight. He can get his atenolol in the morning and will be on the OR schedule for tomorrow. CC: [facility]; [facility] [place] * [id number]/[facility] #: [id number] MTDD
[2016-08-06] MEDS: Morphine INJ* 2 MG/ML 1 ML CARPUJECT IV PRN (02:51)
[2016-08-06] MEDS: metroNIDAZOLE IV 500 MG/100ML* 500 MG/100 ML BAG IVPB SCH ×4 (05:32→22:47)
[2016-08-06 06:26] LABS: Albumin 3.3 g/dL (3.2-5.2); BUN/Creatinine Ratio 16.5 (8-20); Calcium 8.7 mg/dL (8.6-10.3); EGFR African American 113.9 (>60); EGFR Non-African American 88.6 (>60); Globulin 3.1 g/dL (2-4); Potassium 3.5 mmol/L (3.5-5.0); Total Bilirubin 2.4 mg/dL (0.2-1.0); Total Protein 6.4 g/dL (6.4-8.9)
[2016-08-06 06:34] LABS: Hematocrit 44 % (42-52); Mean Corpuscular HGB Conc 34 g/dl (31-36); Mean Corpuscular Hemoglobin 29 pg (27-31); Mean Corpuscular Volume 85 fL (80-94); Mean Platelet Volume 9 um3 (7.4-10.4); Red Blood Count 5.14 10^6/ul (4.0-5.4); Red Cell Distribution Width 13 % (10.5-15); White Blood Count 12.7 10^3/ul (3.5-10.8)
[2016-08-06] MEDS: Ciprofloxacin 400MG IVPREMIX(* 400 MG/200 ML BAG IVPB SCH ×2 (09:23→21:25)
[2016-08-06] MEDS: NS 0.9% 1000 ML* 1,000 ML IV SCH (09:23)
[2016-08-06] MEDS: Atenolol TAB* 50 MG PO SCH (09:23)
[2016-08-06] MEDS ORDERED: Famotidine IV* 10 MG/ML 2 ML (20 mg) IV ONE (12:49)
[2016-08-06] MEDS ORDERED: Buffered Lidocaine 1% SYR 3ML* 3 ML/SYR SYRINGE INTRADERM ONE (12:49)
[2016-08-06] MEDS ORDERED: Bupivacaine 0.25% EPI 200,000* 30 ML SDV ONE (12:52)
[2016-08-06] MEDS ORDERED: Famotidine IV* 10 MG/ML 2 ML (20 mg) ONE (12:54)
[2016-08-06] MEDS ORDERED: PROCHLORPERAZINE INJ 5 MG/ML 2 ML VIAL IV PRN (12:58)
[2016-08-06] MEDS ORDERED: oxyCODONE/Acetamin 5/325 MG* TAB PO PRN (12:58)
[2016-08-06] MEDS ORDERED: fentaNYL* 50 MCG/ML 2 ML VIAL (100 MCG VIAL) IV PRN (12:58)
[2016-08-06] MEDS ORDERED: Morphine INJ* 10 MG/ML 1 ML CARPUJECT IV PRN (12:58)
[2016-08-06] MEDS ORDERED: Midazolam* 1 MG/ML 5 ML VIAL (5 MG) ONE (13:01)
[2016-08-06] MEDS ORDERED: KETAMINE HCL* 50 MG/ML 10 ML VIAL ONE (13:01)
[2016-08-06] MEDS ORDERED: fentaNYL* 50 MCG/ML 2 ML VIAL (100 MCG VIAL) ONE ×2 (13:01→16:57)
[2016-08-06] MEDS ORDERED: Atracurium* 10 MG/ML 10 ML VIAL ONE (13:01)
[2016-08-06] MEDS ORDERED: Ondansetron INJ* 2 MG/ML VIAL ONE (14:21)
[2016-08-06] MEDS ORDERED: Glycopyrrolate IV* 0.2 MG/ML 1 ML VIAL ONE (14:21)
[2016-08-06] MEDS ORDERED: Propofol* 10 MG/ML 20 ML BTL IV PUSH ONE (14:21)
[2016-08-06] MEDS ORDERED: Neostigmine Methylsulfate* 2 MG/2 ML SYRINGE ONE (14:21)
[2016-08-06] MEDS ORDERED: Morphine INJ* 10 MG/ML 1 ML CARPUJECT ONE ×2 (14:21→16:57)
[2016-08-06] MEDS ORDERED: Metoprolol Tartrate IV* 1 MG/ML 5 ML VIAL ONE (14:21)
[2016-08-06] MEDS ORDERED: Dexamethasone IV* 4 MG/ML 1 ML (4 MG) ONE (14:21)
[2016-08-06] MEDS ORDERED: Lidocaine 2% MPF* 2 ML VIAL ONE (16:13)
[2016-08-06] MEDS ORDERED: Ondansetron INJ* 2 MG/ML VIAL IV PRN (16:35)
--- NOTE | 2016-08-06 16:38 | PN ---
Subjective Date of Service: 08/06/16 Interval History: HOSPITALIST PROGRESS NOTE Patient seen and examined at bedside. He offers no complaints at this time. Family History: Unchanged from Admission Social History: Unchanged from Admission Past Medical History: Unchanged from Admission Objective Active Medications: Atenolol (Tenormin Tab*) 100 mg PO DAILY [facility] Last Admin: 08/06/16 09:23 Dose: 100 mg Sodium Chloride (Ns 0.9% 1000 Ml*) 1,000 mls @ 100 mls/hr IV PER RATE [facility] Last Admin: 08/06/16 09:23 Dose: 100 mls/hr Ciprofloxacin/Dextrose (Cipro 400 Mg Ivpremix(*)) 400 mg in 200 mls @ 200 mls/ hr IVPB 0930,2130 [facility] Last Admin: 08/06/16 09:23 Dose: 200 mls/hr Metronidazole/Sodium Chloride (Flagyl 500 Mg Ivpb*) 500 mg in 100 mls @ 100 mls /hr IVPB 0700,1500,2300 [facility] Last Admin: 08/06/16 13:49 Dose: 100 mls/hr Lactated Ringer's (Lactated Ringers 1000 Ml Bag*) 1,000 mls @ 125 mls/hr IV PER RATE [facility] Last Admin: 08/06/16 12:50 Dose: 125 mls/hr Morphine Sulfate (Morphine Inj (Syringe)*) 2 mg IV Q2H PRN PRN Reason: PAIN - SEVERE Last Admin: 08/06/16 02:51 Dose: 2 mg Oxycodone/Acetaminophen (Percocet 5/325 Tab*) 1 tab PO ONCE PRN PRN Reason: PAIN - MODERATE Stop: 08/07/16 12:59 Vital Signs 08/06/16 08/06/16 08/06/16 02:51 03:51 07:41 Temperature 99.1 F Pulse Rate 86 Respiratory 18 16 18 Rate Blood Pressure 122/72 (mmHg) O2 Sat by Pulse 94 Oximetry Oxygen Devices in Use Now: None Appearance: Young male lying in bed in [facility]. Eyes: No Scleral Icterus Ears/Nose/Mouth/Throat: Mucous Membranes Moist Neck: Trachea Midline Respiratory: Symmetrical Chest Expansion and Respiratory Effort, Clear to Auscultation Cardiovascular: RRR - Normal S1 and S2 Abdominal: NL Sounds; No Tenderness; No Distention Extremities: No Edema Neurological: Alert and Oriented x 3, NL Muscle Strength and Tone Lines/Tubes/Other Access: Clean, Dry and Intact Peripheral IV Nutrition: Taking PO's Result Diagrams: 08/06/16 05:23 08/06/16 05:23 Assess/Plan/Problems-Billing Assessment: Mr. Bustos is a 51yo M with PMH of HTN, who presented to ED with c/o abdominal pain, found to have choledocholithiasis and possible cholecystitis. - Patient Problems (1) Choledocholithiasis with acute cholecystitis Comment: - US, CT, MRCP reviewed. - s/p ERCP yesterday with extraction of CBD stone. - Continue Cipro/Metronidazole for possible cholecystitis. - Surgery consult appreciated - plan for cholecystectomy today. - Patient's BP is controlled, CxR is normal and EKG showed no ischemic signs. RCRI is 1, predicting 1% risk of cardiac complications. Patient is optimized for proposed procedure. (2) HTN (hypertension) Comment: - Continue Atenolol. (3) DVT prophylaxis Comment: - Lovenox. Status and Disposition: Inpatient for management of choledocholithiasis and possible acute cholecystitis.
[2016-08-06] MEDS ORDERED: Ibuprofen TAB* 600 MG PO PRN (16:42)
[2016-08-06] MEDS ORDERED: Ketorolac INJ* 30 MG/ML 1 ML VIAL ONE (16:57)
[2016-08-06] MEDS ORDERED: Ketorolac INJ* 30 MG/ML 1 ML VIAL IV PUSH ONE (17:00)
--- NOTE | 2016-08-07 06:09 | OP ---
DATE OF OPERATION: 08/06/16 - ROOM #[id number] DATE OF : 69 SURGEON: Mike Rodriguez MD PULMONARY FUNCTION TECHNOLOGIST: Josefina Murillo NP ANESTHESIOLOGIST: Dr. Prieto. ANESTHESIA: General anesthetic, local infiltration. PRE-OP DIAGNOSIS: Cholelithiasis. POST-OP DIAGNOSIS: Cholelithiasis with acute cholecystitis. OPERATIVE PROCEDURE: Laparoscopic cholecystectomy. DESCRIPTION OF PROCEDURE: The patient was supine on the operating table. After adequate general anesthetic, compression stockings, Kary Hugger warmer, and intravenous antibiotics; the abdomen was prepped with antiseptic; and draped in a sterile fashion. Local infiltrative anesthesia was administered. A small umbilical incision was created. Blunt port cannula was placed. Insufflation was carried out with carbon dioxide. Additional cannulae, 12 mm subxiphoid and 5 mm right upper quadrant and right anterior axillary line, are placed through small stab wounds under direct vision. The gallbladder was acutely inflamed and very thick walled. It was drained at the fundus. Clear bile was forthcoming. The gallbladder was tented upward and there was a lot of yumiko edema in the region of the duct and artery, so it was decided to do it from the top down. This was taken down about three [address] and the liver bed was very hemorrhagic. This required packing with Surgicel and with gauze and after pressure for a while, eventually hemostasis was obtained. In the meantime, the gallbladder was amputated about three-quarters of the way down and placed in a retrieval bag. There was a large stone wedged in the neck of the gallbladder, which was retrieved and put into the retrieval bag as well. After hemostasis was obtained, this gallbladder remnant was again examined and painstakingly dissection was carried out until the cystic duct and cystic artery could be identified. Cystic artery was divided after clipping. The cystic duct was very fibrotic and was divided with an EndoGIA stapler with a 45- mm ham load. This was then placed through retrieval bag and brought out through the epigastric site, which was enlarged for that purpose. After copious irrigation with about 6 L of saline and continued suctioning, hemostasis was deemed to be adequate. A EKTA drain was placed in through the epigastric site and pulled out through the lateral site and sutured at the skin with 3-0 Prolene. The drain was placed down into the gutter and into the gallbladder fossa. Pneumoperitoneum was allowed to escape. Fascia of the 2 large incisions was closed with 0 Polysorb, skin with 5-0 Polysorb followed by Steri- Strips. He tolerated the procedure well, was awakened, and brought to recovery in good condition. There were no complications. Drain was Brennan-Carter. Sponge and instrument counts were correct. Estimated blood loss 200 mL. NOTE: This procedure was substantially more difficult and time consuming than usual (3X normal) due to the degree of infection. CC: Mike Rodriguez MD; Jeffry Gilmore MD; Josue Schmid MD* [id number]/[facility] #: [id number] MTDD
[2016-08-07] MEDS: metroNIDAZOLE IV 500 MG/100ML* 500 MG/100 ML BAG IVPB SCH (07:09)
[2016-08-07 08:01] VITALS: BP 117/60
[2016-08-07] MEDS: Atenolol TAB* 50 MG PO SCH (09:19)
[2016-08-07] MEDS: Ciprofloxacin 400MG IVPREMIX(* 400 MG/200 ML BAG IVPB SCH (09:20)
--- NOTE | 2016-08-08 15:34 | DS ---
DISCHARGE SUMMARY: DATE OF ADMISSION: 08/03/16 DATE OF DISCHARGE: 08/07/16 PRIMARY CARE PROVIDER: Dr. Chiqui Alvarado. GENERAL SURGEON: Dr. Mike Rodriguez. DISCHARGE DIAGNOSES: 1. Choledocholithiasis. 2. Acute cholecystitis. SECONDARY DIAGNOSIS: Hypertension. MEDICATIONS: 1. Ibuprofen 400 mg p.o. q.6 hours p.r.n. pain. 2. Atenolol 100 mg p.o. daily. HOSPITAL COURSE: Mr. Bustos is a 51-year-old male with a past medical history as stated above who presented to the emergency room with complaints of multiple episodes of right upper quadrant colic usually postprandial. For more details about his presentation, I refer you to his history and physical. A gallbladder ultrasound showed an echogenic liver consistent with hepatic steatosis. No evidence of cholelithiasis or biliary duct dilatation. CT of the abdomen and pelvis showed hepatic steatosis, intrahepatic and extrahepatic ductal dilatation with choledocholithiasis. Distended gallbladder with small amount of pericholecystic fluid, suspect cystic duct calculi. Incidental finding of moderate diverticula, but no evidence of acute diverticulitis. MRCP was performed and it showed internal and external hepatic ductal distention, calculus in the distal common bile duct. Calculus in the neck of the gallbladder, possibly impacted. There is gallbladder wall thickening and mild pericholecystic fluid suggesting the possibility of acute cholecystitis and mild splenomegaly. The patient was seen in consultation by Gastroenterology (Dr. Josue Schmid) and his recommendation was for an ERCP that was performed on August 04. An ERCP that showed duodenal diverticula, gallstones, status post endoscopic sphincterotomy after first cannulation, common bile duct stone was delivered via balloon extraction. The patient was then seen in consultation by General Surgery (Dr. Becker) and his impression was the patient had cholangitis, resolving with possibility of cholecystitis, although the patient was asymptomatic at the time of his evaluation. His recommendation was for a laparoscopic cholecystectomy. The procedure was performed on August [address] Mike Rodriguez. As per operative note, the procedure was substantially more difficult and time consuming than usual due to the degree of infection and inflammation. The patient was kept overnight and he was discharged home by the surgical team on 08/07/16. The plan is for the patient to follow up with Dr. Alvarado on August 12 and arrangements have also been made for him to follow up with the [facility]. DIET: Low-fat diet. ACTIVITY: As tolerated. DISPOSITION: To home. STATUS WHILE IN THE HOSPITAL: Inpatient. TIME SPENT: Approximately 30 minutes was spent to complete this discharge. CC: Dr. Chiqui Alvarado; Dr. Mike Rodriguez * [id number]/[facility] #: [id number] MTDD
== END 2016-08-07 11:25 | disposition home or self-care (01) | DRG 419 ==
LOC: ED 08:10 → MED 17:05 → SSU 08-06 18:03
PROVIDERS: ADMIT Internal Medicine; ATTEND Internal Medicine
PROC: 0FC98ZZ Extirpation of Matter from Common Bile Duct, Via Natural or Artificial Opening Endoscopic (ICD-10-PCS; 2016-08-04)
PROC: BF131ZZ Fluoroscopy of Gallbladder and Bile Ducts using Low Osmolar Contrast (ICD-10-PCS; 2016-08-04)
PROC: 0FT44ZZ Resection of Gallbladder, Percutaneous Endoscopic Approach (ICD-10-PCS; principal; 2016-08-06 14:45)
DX: K80.42 Calculus of bile duct with acute cholecystitis without obstruction (principal); K76.0 Fatty (change of) liver, not elsewhere classified; R16.1 Splenomegaly, not elsewhere classified; I10 Essential (primary) hypertension; K57.10 Diverticulosis of small intestine without perforation or abscess without bleeding; Z72.89 Other problems related to lifestyle; Z82.49 Family history of ischemic heart disease and other diseases of the circulatory system; Z87.442 Personal history of urinary calculi; Z88.8 Allergy status to other drugs, medicaments and biological substances
CPT/HCPCS: 36415; 71020; 74177; 74181; 74328; 76376; 76705; 80053; 81003; 81015; 83690; 84484; 85025; 85610; 86140; 88304; 93005; A9270-GY; C1769; C1776; J0744; J1100; J1885; J2250; J2270; J2405; J2704; J3010; J3490; Q9967